=== PATIENT | male | born 1955 | race Caucasian/White ===

== ENCOUNTER 2019-08-01 21:40 | Emergency (ER) | payer OTHER ==
[~2019-08-01] VITALS: Ht 177.8 cm; Wt 77.1 kg
[~2019-08-01 21:40] MED LIST: CODE BLUE PARTICIPANT 1 EA MISC MC ONE; EPINEPHrine PFS 0.1 MG/ML SYR IVP ONE; ETOMIDATE 20 MG/10 ML VIAL IVP ONE; SODIUM BICARBONATE 8.4% PFS 50 MEQ/50 ML SYR IVP ONE; SUCCINYLCHOLINE CHLORIDE 200 MG/10 ML VIAL IVP ONE
--- NOTE | 2019-08-01 21:40 | NUR ---
PT BIBA FULL ARREST. TAKEN TO BED 6
--- NOTE | 2019-08-01 21:40 | NUR ---
PT CAME INTO ER IN FULL ARREST. EMS RESPONDED TO HIS HOME AND FOUND PT UNRESPONSIVE. PER FAMILY, BROTHER STARTED CPR PRIOR TO EMS ARRIVAL. PT BROTHER STATED PT WAS VOMITING AND THEY TRIED TO HELP HIM SIT UP. 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 ER STAFF, UNDERGRADUATE INTERN, RNS, ERMD, RT PERFORMED CPR. NO PULSES AND UNRESPONSIVE. PT WAS INTUBATED WITH EMS. AN IO WAS INITIATED WITH EMS AND ANOTHER IO WAS INITIATED IN ER BY RN. CPR CONTINUED.
--- NOTE | 2019-08-01 21:40 | NUR ---
Respiratory Therapist at bedside
--- NOTE | 2019-08-01 21:40 | NUR ---
Dr. Burroughs examining patient.
--- NOTE | 2019-08-01 21:47 | NUR ---
TIME OF IS 2146. SEE CODE VITO CHART FOR FURTHER INTERVENTIONS THAT WERE USED DURING CODE. Addendum: 08/02/19 at 0017 by CLARISSA TIME OF IS 2146. SEE CODE BLUE CHART FOR FURTHER INTERVENTIONS THAT WERE USED DURING CODE.
--- NOTE | 2019-08-01 21:47 | NUR ---
PT PRONOUNCED BY DR. FERNANDO AT THIS TIME
--- NOTE | 2019-08-01 21:59 | NUR ---
PATIENT BIBA FULL ARREST AND WAS INTUBATED. AUTO BODY CUSTOMIZER ATTENDED.
--- NOTE | 2019-08-01 22:08 | NUR ---
SPOKE TO ASSEMBLY AND PACKING SUPERVISOR DEP. EVE CHANG REGARDING PT. GAVE REPORT, DEPUTY STATED HER PARTNER WILL CALL BACK FOR FURTHER INFORMATION. XIOMY MADE AWARE
--- NOTE | 2019-08-01 22:41 | NUR ---
CALLED [facility], SPOKE TO SERENA WILL CALL BACK APPROX ONE HOUR, CASE #[id number]
--- NOTE | 2019-08-01 22:49 | NUR ---
ASSEMBLY ADJUSTER CALLED, WILL BE A CORONERS CASE, ETA 45 MIN. CASE # IS [id number] [facility]
--- NOTE | 2019-08-01 23:13 | NUR ---
CB DEAL BROTHER OF PT, CONTACT INFO IS [phone] OR [phone]
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
--- NOTE | 2019-08-01 23:53 | NUR ---
HOTEL ASSOCIATE TRANPORT AT [facility]
--- NOTE | 2019-08-02 00:20 | NUR ---
[facility] CALLED AND SPOKE TO CINTHYA. WILL CALL BACK WITH FURHTER INFORMATION.
--- NOTE | 2019-08-02 00:30 | NUR ---
[facility] CALLED AND SPOKE TO CINTHYA. THEY WILL NOT PROCEED WITH PT.
--- NOTE | 2019-08-02 00:42 | NUR ---
BODY TAKEN BY CORPORATE HUMAN RESOURCES MANAGERMANISH DONALDSON
--- NOTE | 2019-08-02 00:42 | NUR ---
CONSULTING MARINE ENGINEER TRANSPORT PT OUT OF ER. ERMD MADE AWARE OF STATUS AND FAMILY WAS NOTIFIED.
== END 2019-08-01 21:47 | disposition expired ==
LOC: MED 21:40
DX: I46.9 Cardiac arrest, cause unspecified (principal)
CPT/HCPCS: 92950; 99285; J0171; J0330; J3490